=== PATIENT | female | born 1985 | race Caucasian/White ===

== ENCOUNTER → 2019-04-08 | Outpatient (CLI) | payer BC ==
[~2019-04-08] MED LIST: IBU800 M1 PO; PEPCID40 MG PO; PERCOCET 325 MG1 TA2 PO; PRENATAL 191 TAB PO
--- NOTE | 2019-04-08 14:13 | NUR ---
Pt, Yudi Mcadams, presents for outpatient consult with 18 day old baby boy, Ap Mcadams. They were referred by Dr. Srinivasan because Ap was not back to weight at 2 weeks of age. Ap was born on [birth year] by and weighed 7#12oz (3515 gms). Discharge weight was 7#4oz (3295 gms). Pt is unable to recall his weight at his first visit with Dr. Srinivasan, but was seen on 04/05/19 and weighed 7#10. Today Ap weighs 8#0.1oz (3630 gms), for a gain of 6oz over the last 3 days. Pt reports she feeds Ap every 2 hours in the daytime, and lets him wake up on his own at [facility], about q 3-4 hours. She also reports qs voids and stools. A large void and stool were noted prior to his weight here. Ap recieves a bottle of EBM 2-3 times per week; she pumps in the morning after feeding him and randomly a few more times throughout the day and collects 1.5-3oz each time. Pt states she has been able to get Ap to nurse a few times without the nipple shield, but generally they have to use it. She struggles with keeping Ap attentive at the breast in general and that is observed during this consult as well. After nursing with and without the shield on each breast and much stimulation Ap has a post feed gain of 1.8oz (54 gms). LC observes Ap is just not in a feeding state, pt reports similar struggles at a lot of feeding. She does confirm that he is more attentive at [facility] when he has woke himself for feedings. POC: Move feeding guideline to 3 hours in the daytime to see if he is more interested if he gets the opportunity to wake for feedings on his own. Continue baby lead feedings at [facility]. F/U: Pt states Ap has his next appt with Dr. Srinivasan in two weeks, will do weight check then. Encouraged her to consider coming to walk-in clinic on Friday for at least a weight check since there will be a change in his feeding pattern. Pt verbalizes understanding, may follow that suggestions pending how the rest of the weeks goes. Questions invited and answered.
== END ==
LOC: LAC 12:42
DX: Z39.1 Encounter for care and examination of lactating mother (principal); Z71.89 Other specified counseling

== ENCOUNTER 2022-02-13 13:36 | Inpatient (IN) | payer BC ==
[~2022-02-13] VITALS: Ht 157.5 cm; Wt 98.6 kg
[2022-02-18] VITALS (43 sets, daily range): BP systolic 76–130; BP diastolic 44–77; PULSE 79–125; TEMP 97.1–98.9
--- NOTE | 2022-02-18 06:30 | NUR ---
0630- PATIENT AMBULATORY TO UNIT WITH SPOUSE. ORIENTED TO LABOR ROOM 6 AND ASSISTED INTO GOWN. EFM AND TOCO STARTED AND VITAL SIGNS TAKEN. CONSENTS REVIEVED AND SIGNED, ASSESSMENT COMPLETED.
--- NOTE | 2022-02-18 07:15 | NUR ---
7015- IV ATTEMPTED ON R HAND. PATIENT REPORTS BEING LIGHTHEADED. PATIENT REPOSITIONED, ORAL FLUIDS PROVIDED. 0725- IV INSERTED SUCCESSFULLY BY RAHEL JAIMES. FLUID BOLUS STARTED, THIS RN REMAINS WITH PATIENT TO MONITOR.
--- NOTE | 2022-02-18 07:30 | NUR ---
0720- FHR deceleration noted, down to 85 bpm, Pt repositioned to LL without improvement, repositioned to RL. 0724- IV start in RW, LR bolus initiated. FHR noted to recover to baseline of 155 bpm. With next two contractions late decelerations noted, then resolved after that.
[2022-02-18] MEDS ORDERED: PEPCID 20MG TAB20 MG PO (07:50)
[2022-02-18] MEDS ORDERED: CLARITIN 1010 MG/TAB PO (07:50)
[2022-02-18 08:06] LABS: BASO # 0.1 K/mm3 (0.0-0.2); BASO % 0.5 % (0.0-2.0); EOS # 0.4 K/mm3 (0.0-0.7); EOS % 3.6 % (0.0-4.0); GRAN # 6.5 K/mm3 (1.4-6.5); GRAN % 62.1 % (42.2-75.2); HEMATOCRIT 38.7 % (37.0-47.0); HEMOGLOBIN 13.3 g/dl (12.5-16.0); LYMPH # 2.4 K/mm3 (1.2-3.4); LYMPH % 23.1 % (20.0-51.0); MEAN CELL VOLUME 87 fl (80.0-100.0); MEAN CORPUSCULAR HEMOGLOBIN 30 pg (27-31); MEAN CORPUSCULAR HGB CONC 34 g/dl (33.0-37.0); MEAN PLATELET VOLUME 9.5 fl (7.4-10.4); MONO # 1.1 K/mm3 (0.1-0.6); MONO % 10.3 % (1.7-9.3); PLATELET COUNT 280 K/mm3 (130-400); RED BLOOD COUNT 4.44 M/mm3 (4.10-5.30); REDCELL DISTRIBUTION WIDTH-CV 14.3 % (11.5-14.5)
--- NOTE | 2022-02-18 11:45 | NUR ---
1130- FHR LATE DECEL DOWN TO 80 BPM. 1135- SVE BY THEODORE /80/-2. REPOSITIONED TO . 1140- PIT OFF. 1145- EPHEDRINE GIVEN PER ORDER FOR HYPOTENSION. THIS RN REMAINS AT BEDSIDE MOITORING PATIENT. 1150- EPHEDRINE DOSE 2 GIVEN. FHR DECELS IMPROVING TO SUBTLE LATE DECELS WITH MODERATE VARIABILITY, ACCELERATION NOTED.
--- NOTE | 2022-02-18 14:45 | NUR ---
1430- CONTRACTIONS NOT TRACING WELL. TOCO ADJUSTED AND ZEROED. THIS RN REMAINS AT BEDSIDE TO MONITOR PATIENT AND CONTINUE TO READJUST.
--- NOTE | 2022-02-18 19:10 | NUR ---
ASSIST TO SIDE OF BED, DANGLES. STANDS AT SIDE OF BED, STABLE, AMBULATES STANDBY ASSIST, [facility] AND GOWN CHANGED, UNABLE TO VOID AT THIS TIME. EDU PROVIDED ON POST EPIDURAL VOIDING/FREQUENT EMPTING OF BLADDER/BLEEDING CONTROL, VERBALIZES UNDERSTANDING.
--- NOTE | 2022-02-18 19:16 | NUR ---
NO DRAINAGE NOTED, SURROUNDING AREA CLEANED, LEFT OPEN TO AIR.
[2022-02-19 04:00] VITALS: BP 122/79; PULSE 102; TEMP 98
[2022-02-19 08:08] VITALS: BP 117/71; PULSE 95; TEMP 98
[2022-02-19] MEDS ORDERED: IBU600 MG PO (08:42)
--- NOTE | 2022-02-19 08:55 | NUR ---
Initial visit; Parents thanked [employer] [facility] for offering congratulations and God's blessings for the of their daughter. [employer] [facility] thanked family for choosing our hospital.
[2022-02-19 18:07] VITALS: BP 121/74; PULSE 83; TEMP 98.1
[2022-02-19 20:30] VITALS: BP 119/70; PULSE 80; TEMP 97.7
[2022-02-20 07:30] VITALS: BP 112/75; PULSE 80; TEMP 97.7
--- NOTE | 2022-02-20 13:41 | NUR ---
DISCHARGE INSTRUCTIONS REVIEWED WITH PATIENT AND SPOUSE. QUESTIONS ANSWERED.
== END 2022-02-20 13:50 | disposition home or self-care (01) | DRG 805 ==
LOC: OB 13:36 → LDR 02-18 06:24 → OB 02-18 06:24
PROVIDERS: ADMIT Obstetrics & Gynecology
PROC: 10E0XZZ Delivery of Products of Conception, External Approach (ICD-10-PCS; principal; 2022-02-18)
PROC: 0HQ9XZZ Repair Perineum Skin, External Approach (ICD-10-PCS; 2022-02-18)
PROC: 10907ZC Drainage of Amniotic Fluid, Therapeutic from Products of Conception, Via Natural or Artificial Opening (ICD-10-PCS; 2022-02-18)
DX: O48.0 Post-term pregnancy (principal); O99.42 Diseases of the circulatory system complicating childbirth; Z37.0 Single live birth; Z3A.41 41 weeks gestation of pregnancy; O43.123 Velamentous insertion of umbilical cord, third trimester; O70.0 First degree perineal laceration during delivery; I95.2 Hypotension due to drugs; O69.81X0 Labor and delivery complicated by cord around neck, without compression, not applicable or unspecified; Z53.29 Procedure and treatment not carried out because of patient's decision for other reasons
CPT/HCPCS: J2590; J2795; J7120